=== PATIENT | female | born 1980 | race Caucasian/White ===

== ENCOUNTER 2018-10-15 18:25 | Emergency (ER) | payer SELFPAY ==
[~2018-10-15] VITALS: Ht 154.9 cm; Wt 73.0 kg
[2018-10-15 18:40] VITALS: Ht 154.9 cm; Wt 73.0 kg
[2018-10-15 22:27] VITALS: BP 128/82
== END 2018-10-15 22:27 | disposition home or self-care (01) ==
LOC: ED 18:25
DX: J02.9 Acute pharyngitis, unspecified (principal)